=== PATIENT | female | born 1965 | race Caucasian/White ===

== ENCOUNTER 2021-07-16 00:13 | Observation (INO) ==
[2021-07-16] MEDS ORDERED: Naloxone 0.4 MG/ML INJ IVP PRN (02:48)
[2021-07-16] MEDS ORDERED: *HR* Dextrose 50 % in Water (Syg) 50 ML SYRINGE IVP PRN (03:20)
[2021-07-16] MEDS ORDERED: Dextrose Gel 15 GM/37.5 ML TUBE PO PRN ×2 (03:20)
[2021-07-16] MEDS ORDERED: D5% in Water 1,000 ML IVC PRN (03:20)
[2021-07-16 05:33] LABS: Basophils % 0.1 %; Hematocrit 39.4 % (35.3-44.9); Hemoglobin 11.7 g/dL (11.5-15.4); Immature Granulocytes % 0.5 % (0-4); Lymphocytes # 0.3 K/mcL (0.6-4.6); Lymphocytes % 4.1 %; Mean Corpuscular HGB Conc 29.7 g/dL (31.6-35.5); Mean Corpuscular Hemoglobin 24.2 pg (28.0-33.3); Mean Corpuscular Volume 81.4 fL (83.0-100.0); Mean Platelet Volume 9.6 fL (9.4-12.4); Monocytes % 0.5 %; Neutrophils # 7.4 K/mcL (1.6-8.9); Platelet Count 238 K/mcL (140-400); Red Blood Count 4.84 M/mcL (3.82-4.97); Segmented Neutrophils % 94.8 %; White Blood Count 7.9 K/mcL (4.3-11.1)
[2021-07-16 05:43] LABS: Prothrombin Time 11.6 Seconds (9.4-12.1)
[2021-07-16 06:04] LABS: Estimated Average Glucose 189 mg/dl; Hemoglobin A1C 8.2 %
[2021-07-16 06:30] LABS: Alanine Aminotransferase 25 Units/L (7-52); Albumin 3.7 g/dL (3.5-5.7); Albumin/Globulin Ratio 1.6 (1.1-2.2); Alkaline Phosphatase 102 Units/L (34-104); Aspartate Amino Transferase 10 Units/L (13-39); BUN/Creatinine Ratio 35 (6-26); Bilirubin,Total 0.3 mg/dL (0.3-1.0); Blood Urea Nitrogen 17 mg/dL (6-20); Calcium 8.9 mg/dL (8.6-10.3); Carbon Dioxide 27 mEq/L (23-29); Chloride 107 mEq/L (98-107); Chol/HDL Ratio 2.6 (0-4.9); Cholesterol 120 mg/dL (< 200); Globulin 2.3 g/dL (2.4-3.5); Glucose 219 mg/dL (70-105); HDL Cholesterol 46 mg/dL (40-59); LDL Cholesterol,Calculated 57 mg/dL (< 100); Osmolality,Calculated 302 (280-300); Potassium 4.3 mEq/L (3.5-5.1); Sodium 142 mEq/L (136-145); Thyroid Stimulating Hormone 0.494 mcIU/mL (0.340-5.600); Triglycerides 86 mg/dL (< 150); eGFR For African Americans > 60 (> 60); eGFR For Non-African Americans > 60 (> 60)
[2021-07-16] MEDS: lisinopriL 5 MG TABLET PO SCH (08:13)
[2021-07-16] MEDS: amLODIPine 5 MG TABLET PO SCH (08:13)
[2021-07-16] MEDS: ARIPiprazole 10 MG TABLET PO SCH (08:14)
[2021-07-16] MEDS ORDERED: *HR* LORazepam 2 MG/ML VIAL IVP ONE ×3 (09:22→23:50)
[2021-07-16] MEDS: Insulin LISPRO 300 UNITS/3 ML VIAL SUBQ SCH ×3 (09:43→17:54)
[2021-07-16] MEDS: levETIRAcetam 500 MG/5 ML UDC PO SCH (09:44)
[2021-07-16 11:17] LABS: Bilirubin,Urine Negative (Negative); Blood,Urine Negative (Negative); Clarity,Urine Clear (Clear); Color,Urine Colorless (Yellow); Glucose,Urine (UA) >=1000 mg/dL (Normal); Ketones,Urine 20 mg/dL (Negative); Leukocyte Esterase,Urine Negative (Negative); Nitrite,Urine Negative (Negative); Protein,Urine Negative (Neg-Trace); RBC,Urine 0-3 per hpf (0-3); Specific Gravity,Urine > 1.030 (1.010-1.025); Squamous Epithelial Cell,Urine Few per hpf (None-Few); Urobilinogen,Urine Normal (Normal); WBC,Urine 0-3 per hpf (0-3)
[2021-07-16 12:05] LABS: Influenza A PCR Negative (Negative); Influenza B PCR Negative (Negative); Resp. Syncytial Virus PCR Negative (Negative)
[2021-07-16 13:08] LABS: SARS-CoV-2 by PCR (In House) Negative (Negative)
[2021-07-16 18:48] LABS: Amphetamine Screen,Urine Negative ng/mL (Cutoff=1000); Barbiturate Screen,Urine Negative ng/mL (Cutoff=200); Benzodiazepines Screen,Urine Negative ng/mL (Cutoff=200); Cannabinoid Screen,Urine Negative ng/mL (Cutoff = 50); Cocaine Screen,Urine Negative ng/mL (Cutoff= 300); Opiate Screen,Urine Negative ng/mL (Cutoff=300); Phencyclidine Screen,Urine Negative ng/mL (Cutoff=25)
[2021-07-16] MEDS ORDERED: Insulin LISPRO 300 UNITS/3 ML VIAL SUBQ SCH (21:00)
[2021-07-17 06:58] VITALS: BP 156/79; PULSE 67; TEMP 97.9; O2SAT 97
[2021-07-17] MEDS: Insulin LISPRO 300 UNITS/3 ML VIAL SUBQ SCH ×2 (07:24→12:26)
[2021-07-17] MEDS ORDERED: Aspirin 81 MG TAB.CHEW PO SCH (09:00)
[2021-07-17] MEDS ORDERED: *HR* OxyCODONE/APAP 10/325 TABLET PO PRN (09:04)
[2021-07-17] MEDS: ARIPiprazole 10 MG TABLET PO SCH (09:14)
[2021-07-17] MEDS: amLODIPine 5 MG TABLET PO SCH (09:14)
[2021-07-17] MEDS: levETIRAcetam 500 MG/5 ML UDC PO SCH (09:15)
[2021-07-17] MEDS ORDERED: Apixaban 5 MG TABLET PO SCH (09:15)
[2021-07-17] MEDS: lisinopriL 5 MG TABLET PO SCH (09:15)
[2021-07-17] MEDS ORDERED: levETIRAcetam 250 MG TABLET PO SCH (21:00)
[2021-07-19] MEDS ORDERED: BUPRENORPHINE 15 MCG PO SCH (09:00)
== END 2021-07-17 16:56 | disposition home or self-care (01) ==
LOC: 3BNU
PROVIDERS: ADMIT Internal Medicine; ATTEND Internal Medicine

== ENCOUNTER 2021-08-08 05:51 | Inpatient (IN) ==
[2021-08-08] MEDS ORDERED: tiZANidine 4 MG TABLET PO PRN (15:21)
[2021-08-08] MEDS ORDERED: Dextrose Gel 15 GM/37.5 ML TUBE PO PRN ×2 (15:24)
[2021-08-08] MEDS ORDERED: D5% in Water 1,000 ML IVC PRN (15:24)
[2021-08-08] MEDS ORDERED: Ondansetron 4 MG/2 ML VIAL IVP PRN (15:24)
[2021-08-08] MEDS ORDERED: Naloxone 0.4 MG/ML INJ IVP PRN (15:24)
[2021-08-08] MEDS ORDERED: Acetaminophen 325 MG TABLET PO PRN (15:24)
[2021-08-08] MEDS ORDERED: *HR* Dextrose 50 % in Water (Syg) 50 ML SYRINGE IVP PRN (15:24)
[2021-08-08] MEDS ORDERED: Ipratropium/Albuterol Neb 3 ML IH PRN (15:25)
[2021-08-08] MEDS ORDERED: Azithromycin 500 MG in 0.9 % Sodium Chloride 250 ML IVPB SCH (16:00)
[2021-08-08] MEDS: MethylPREDNISolone 40 MG/ML VIAL IVP SCH (17:04)
[2021-08-08] MEDS: Insulin LISPRO 300 UNITS/3 ML VIAL SUBQ SCH (17:05)
[2021-08-08] MEDS: *HR* OxyCODONE/APAP 10/325 TABLET PO PRN ×2 (17:22→21:40)
[2021-08-08] MEDS: Nicotine 14 MG PATCH.TD24 TD SCH (17:23)
[2021-08-08] MEDS ORDERED: levETIRAcetam 250 MG TABLET PO SCH (18:00)
[2021-08-08] MEDS: Ipratropium/Albuterol Neb 3 ML IH SCH ×2 (18:18→19:54)
[2021-08-08] MEDS: Melatonin 3 MG TABLET PO SCH (21:39)
[2021-08-08] MEDS: hydrOXYzine pamoate 25 MG CAPSULE PO PRN (21:40)
[2021-08-08] MEDS: Apixaban 5 MG TABLET PO SCH (21:40)
[2021-08-08] MEDS: Pregabalin 75 MG CAPSULE PO SCH (21:40)
[2021-08-09] MEDS ORDERED: *HR* LORazepam 2 MG/ML VIAL IVP ONE ×3 (01:50→02:45)
[2021-08-09] MEDS ORDERED: *HR* LORazepam 2 MG/ML VIAL ONE ×2 (01:51→02:41)
[2021-08-09] MEDS ORDERED: Ringers Solution, Lactated 1,000 ML IVC ONE (01:53)
[2021-08-09 02:00] LABS: ABG Base Excess -1 mEq/L (-2 to 3); ABG HCO3 26 mEq/L (21-27); ABG Oxygen Saturation 92 % (95-98); ABG PCO2 51 mmHg (35-45); ABG PH 7.32 pH Units (7.32-7.45); ABG PO2 70 mmHg (85-104); ABG TCO2 28 mEq/L (20-26)
[2021-08-09 02:19] LABS: Basophils % 0.1 %; Hematocrit 37.7 % (35.3-44.9); Hemoglobin 11.1 g/dL (11.5-15.4); Immature Granulocytes % 0.8 % (0-4); Lymphocytes # 0.6 K/mcL (0.6-4.6); Mean Corpuscular HGB Conc 29.4 g/dL (31.6-35.5); Mean Corpuscular Hemoglobin 24.5 pg (28.0-33.3); Mean Corpuscular Volume 83.2 fL (83.0-100.0); Mean Platelet Volume 10.3 fL (9.4-12.4); Monocytes # 0.6 K/mcL (0.0-1.3); Neutrophils # 6.4 K/mcL (1.6-8.9); Platelet Count 278 K/mcL (140-400); Red Blood Count 4.53 M/mcL (3.82-4.97); Red Cell Distribution Width 18.6 % (11.5-14.5); Segmented Neutrophils % 83.1 %; White Blood Count 7.7 K/mcL (4.3-11.1)
[2021-08-09 02:41] LABS: Alanine Aminotransferase 11 Units/L (7-52); Albumin 3.9 g/dL (3.5-5.7); Albumin/Globulin Ratio 1.7 (1.1-2.2); Alkaline Phosphatase 97 Units/L (34-104); Aspartate Amino Transferase 8 Units/L (13-39); BUN/Creatinine Ratio 30 (6-26); Bilirubin,Total 0.2 mg/dL (0.3-1.0); Blood Urea Nitrogen 21 mg/dL (6-20); Calcium 9.1 mg/dL (8.6-10.3); Carbon Dioxide 26 mEq/L (23-29); Chloride 105 mEq/L (98-107); Chol/HDL Ratio 2.1 (0-4.9); Cholesterol 131 mg/dL (< 200); Globulin 2.3 g/dL (2.4-3.5); Glucose 269 mg/dL (70-105); HDL Cholesterol 61 mg/dL (40-59); LDL Cholesterol,Calculated 55 mg/dL (< 100); Magnesium 1.9 mg/dL (1.6-2.6); Osmolality,Calculated 298 (280-300); Sodium 138 mEq/L (136-145); Total Protein 6.2 g/dL (6.4-8.9); Triglycerides 77 mg/dL (< 150); eGFR For African Americans > 60 (> 60); eGFR For Non-African Americans > 60 (> 60)
[2021-08-09 02:57] LABS: Troponin I < 0.03 ng/mL (< 0.04)
[2021-08-09] MEDS ORDERED: Phenytoin 1,000 MG in 0.9 % Sodium Chloride 50 ML IVP ONE (03:30)
[2021-08-09] MEDS: Ipratropium/Albuterol Neb 3 ML IH SCH ×4 (03:40→20:51)
[2021-08-09] MEDS: MethylPREDNISolone 40 MG/ML VIAL IVP SCH ×2 (05:32→16:15)
[2021-08-09] MEDS ORDERED: *HR* LORazepam 2 MG/ML VIAL IVP PRN (08:19)
[2021-08-09] MEDS ORDERED: levETIRAcetam 250 MG TABLET PO SCH (09:00)
[2021-08-09] MEDS ORDERED: amLODIPine 5 MG TABLET PO SCH (09:00)
[2021-08-09] MEDS ORDERED: ARIPiprazole 10 MG TABLET PO SCH (09:00)
[2021-08-09] MEDS ORDERED: lisinopriL 5 MG TABLET PO SCH (09:00)
[2021-08-09 09:04] LABS: Bilirubin,Urine Negative (Negative); Blood,Urine Negative (Negative); Clarity,Urine Clear (Clear); Color,Urine Colorless (Yellow); Glucose,Urine (UA) >=1000 mg/dL (Normal); Ketones,Urine Negative (Negative); Leukocyte Esterase,Urine Negative (Negative); Nitrite,Urine Negative (Negative); Protein,Urine Negative (Neg-Trace); RBC,Urine 0-3 per hpf (0-3); Specific Gravity,Urine > 1.030 (1.010-1.025); Squamous Epithelial Cell,Urine Few per hpf (None-Few); Urobilinogen,Urine Normal (Normal); WBC,Urine 0-3 per hpf (0-3)
[2021-08-09] MEDS: Nicotine 14 MG PATCH.TD24 TD SCH (09:04)
[2021-08-09] MEDS: Pregabalin 75 MG CAPSULE PO SCH ×2 (09:04→21:37)
[2021-08-09] MEDS: Apixaban 5 MG TABLET PO SCH ×2 (09:04→21:37)
[2021-08-09] MEDS: Insulin LISPRO 300 UNITS/3 ML VIAL SUBQ SCH ×3 (09:05→17:34)
[2021-08-09] MEDS ORDERED: DAPTOmycin 350 MG in 0.9 % Sodium Chloride 100 ML IVPB SCH (11:00)
[2021-08-09] MEDS: Cefepime HCl 1,000 MG in 0.9 % Sodium Chloride Mini Bag 100 ML IVPB SCH ×2 (11:11→16:16)
[2021-08-09] MEDS: Phenytoin 100 MG in Equashield Syringe 1 EACH IVP SCH ×2 (11:11→21:38)
[2021-08-09] MEDS: *HR* OxyCODONE/APAP 10/325 TABLET PO PRN (12:34)
[2021-08-09] MEDS: hydrOXYzine pamoate 25 MG CAPSULE PO PRN (12:34)
[2021-08-09] MEDS ORDERED: Haloperidol Lactate 5 MG/ML VIAL IVP ONE (13:38)
[2021-08-09] MEDS ORDERED: levETIRAcetam 1,000 MG in 0.9 % Sodium Chloride 100 ML IVPB SCH (16:00)
[2021-08-09 17:44] LABS: Adenovirus Not Detected (Not Detect); Bordetella Pertussis Not Detected (Not Detect); Chlamydophila pneumoniae Not Detected (Not Detect); Coronavirus 229E Not Detected (Not Detect); Coronavirus HKU1 Not Detected (Not Detect); Coronavirus NL63 Not Detected (Not Detect); Coronavirus OC43 Not Detected (Not Detect); Human Metapneumovirus Not Detected (Not Detect); Human Rhinovirus/Enterovirus Not Detected (Not Detect); Influenza A Subtype 2009 H1 Not Detected (Not Detect); Influenza B Not Detected (Not Detect); Mycoplasma pneumoniae Not Detected (Not Detect); Parainfluenza Virus 1 Not Detected (Not Detect); Parainfluenza Virus 2 Not Detected (Not Detect); Parainfluenza Virus 3 Not Detected (Not Detect); Parainfluenza Virus 4 Not Detected (Not Detect); Respiratory Syncytial Virus Not Detected (Not Detect); SARS-CoV-2 Not Detected (Not Detect)
[2021-08-09 19:30] VITALS: BP 127/59; PULSE 72; TEMP 98.5
[2021-08-09] MEDS: Melatonin 3 MG TABLET PO SCH (21:37)
[2021-08-09 21:50] VITALS: O2SAT 98
== END 2021-08-09 22:30 | disposition home or self-care (01) | DRG 189 ==
LOC: 3NENU → SUATTDRO 14:14
PROVIDERS: ADMIT Internal Medicine; ATTEND Internal Medicine

== ENCOUNTER 2021-11-01 15:42 | Observation (INO) ==
[2021-11-01] MEDS ORDERED: Ondansetron 4 MG/2 ML VIAL IVP PRN (17:56)
[2021-11-01] MEDS ORDERED: Naloxone 0.4 MG/ML INJ IVP PRN (17:56)
[2021-11-01] MEDS ORDERED: 0.9 % Sodium Chloride 1,000 ML IVC SCH (18:00)
[2021-11-01] MEDS ORDERED: Albuterol 2.5 MG/3 ML NEBULIZER IH PRN (18:03)
[2021-11-01] MEDS ORDERED: Nitroglycerin 0.4 MG TAB.SUBL SL PRN (18:21)
[2021-11-01] MEDS ORDERED: tiZANidine 4 MG TABLET PO PRN (18:34)
[2021-11-01] MEDS ORDERED: *HR* Dextrose 50 % in Water (Syg) 50 ML SYRINGE IVP PRN (18:34)
[2021-11-01] MEDS ORDERED: D5% in Water 1,000 ML IVC PRN (18:34)
[2021-11-01] MEDS ORDERED: Dextrose 4 GM Chewable Tablets PO PRN ×2 (18:34)
[2021-11-01] MEDS: Nicotine 21 MG PATCH.TD24 TD SCH (19:45)
[2021-11-01] MEDS: Pregabalin 75 MG CAPSULE PO SCH (19:55)
[2021-11-01] MEDS: Metoprolol XL (24 HR) Succ 25 MG TAB.ER.24H PO SCH (19:55)
[2021-11-01] MEDS: Apixaban 5 MG TABLET PO SCH (19:55)
[2021-11-01] MEDS: *HR* HYDROcodone/Acet 5/325 mg TABLET PO PRN (19:56)
[2021-11-01 22:57] LABS: Bilirubin,Urine Negative (Negative); Blood,Urine Negative (Negative); Clarity,Urine Clear (Clear); Color,Urine Light-Orange (Yellow); Glucose,Urine (UA) >=1000 mg/dL (Normal); Ketones,Urine Negative (Negative); Leukocyte Esterase,Urine Negative (Negative); Mucus,Urine Few per lpf (None-Few); Nitrite,Urine Negative (Negative); Protein,Urine Trace mg/dL (Neg-Trace); Specific Gravity,Urine > 1.030 (1.010-1.025); Squamous Epithelial Cell,Urine Few per hpf (None-Few); Urobilinogen,Urine Normal (Normal); WBC,Urine 0-3 per hpf (0-3)
[2021-11-02 01:00] LABS: Alanine Aminotransferase 10 Units/L (7-52); Albumin 3.5 g/dL (3.5-5.7); Albumin/Globulin Ratio 1.5 (1.1-2.2); Alkaline Phosphatase 79 Units/L (34-104); Aspartate Amino Transferase 10 Units/L (13-39); BUN/Creatinine Ratio 25 (6-26); Bilirubin,Total 0.4 mg/dL (0.3-1.0); Blood Urea Nitrogen 14 mg/dL (6-20); Calcium 8.9 mg/dL (8.6-10.3); Carbon Dioxide 26 mEq/L (23-29); Chloride 106 mEq/L (98-107); Globulin 2.4 g/dL (2.4-3.5); Glucose 187 mg/dL (70-105); Magnesium 1.9 mg/dL (1.6-2.6); Osmolality,Calculated 293 (280-300); Phosphorous 4.7 mg/dL (2.7-4.5); Potassium 3.5 mEq/L (3.5-5.1); Sodium 139 mEq/L (136-145); Total Protein 5.9 g/dL (6.4-8.9); Troponin I < 0.03 ng/mL (< 0.04); eGFR For African Americans > 60 (> 60); eGFR For Non-African Americans > 60 (> 60)
[2021-11-02 01:07] LABS: INR 1.4; Prothrombin Time 16.1 Seconds (9.4-12.1)
[2021-11-02 01:10] LABS: Activated Partial Thrombo Time 36.5 Seconds (26.0-36.0); Basophils % 0.7 %; Eosinophils # 0.3 K/mcL (0.0-0.6); Eosinophils % 4.5 %; Hematocrit 36.2 % (35.3-44.9); Hemoglobin 11.3 g/dL (11.5-15.4); Immature Granulocytes % 0.3 % (0-4); Lymphocytes # 1.2 K/mcL (0.6-4.6); Lymphocytes % 20.4 %; Mean Corpuscular HGB Conc 31.2 g/dL (31.6-35.5); Mean Corpuscular Hemoglobin 25.9 pg (28.0-33.3); Monocytes # 0.6 K/mcL (0.0-1.3); Monocytes % 10.8 %; Neutrophils # 3.7 K/mcL (1.6-8.9); Platelet Count 279 K/mcL (140-400); Red Blood Count 4.36 M/mcL (3.82-4.97); Red Cell Distribution Width 18.1 % (11.5-14.5); Segmented Neutrophils % 63.3 %; White Blood Count 5.8 K/mcL (4.3-11.1)
[2021-11-02] MEDS: *HR* HYDROcodone/Acet 5/325 mg TABLET PO PRN (03:24)
[2021-11-02] MEDS ORDERED: *HR* HYDROcodone/Acet 5/325 mg TABLET PO PRN (06:44)
[2021-11-02] MEDS ORDERED: Regadenoson 0.4 MG/5 ML SYRINGE IVP ONE (06:46)
[2021-11-02 07:12] VITALS: BP 138/72; PULSE 78; TEMP 97.5; O2SAT 92
[2021-11-02] MEDS: Insulin LISPRO 300 UNITS/3 ML VIAL SUBQ SCH ×2 (07:22→11:14)
[2021-11-02] MEDS ORDERED: ARIPiprazole 10 MG TABLET PO SCH (09:00)
[2021-11-02] MEDS ORDERED: amLODIPine 5 MG TABLET PO SCH (09:00)
[2021-11-02] MEDS ORDERED: levETIRAcetam 250 MG TABLET PO SCH ×2 (09:00→18:00)
[2021-11-02] MEDS: Apixaban 5 MG TABLET PO SCH (09:57)
[2021-11-02] MEDS: Pregabalin 75 MG CAPSULE PO SCH (09:57)
[2021-11-02] MEDS: Metoprolol XL (24 HR) Succ 25 MG TAB.ER.24H PO SCH (09:58)
[2021-11-02] MEDS: Nicotine 21 MG PATCH.TD24 TD SCH (09:58)
== END 2021-11-02 15:17 | disposition home or self-care (01) ==
LOC: 3BNU
PROVIDERS: ADMIT Internal Medicine; ATTEND Internal Medicine

== ENCOUNTER 2021-11-17 12:23 | Inpatient (IN) ==
[2021-11-17] MEDS ORDERED: Ondansetron 4 MG/2 ML VIAL IVP PRN (13:12)
[2021-11-17] MEDS ORDERED: Naloxone 0.4 MG/ML INJ IVP PRN (13:12)
[2021-11-17] MEDS ORDERED: *HR* Dextrose 50 % in Water (Syg) 50 ML SYRINGE IVP PRN (13:19)
[2021-11-17] MEDS ORDERED: Dextrose 4 GM Chewable Tablets PO PRN ×2 (13:19)
[2021-11-17] MEDS ORDERED: Albuterol 2.5 MG/3 ML NEBULIZER IH PRN (13:19)
[2021-11-17] MEDS ORDERED: D5% in Water 1,000 ML IVC PRN (13:19)
[2021-11-17] MEDS ORDERED: Isovue-370 500 ML BOTTLE IVP ONE (13:35)
[2021-11-17] MEDS ORDERED: Perflutren Lipid Microsphere 1.3 ML in 0.9 % Sodium Chloride 8.7 ML IVP PRN (13:35)
[2021-11-17 14:33] LABS: Basophils % 0.4 %; Eosinophils # 0.2 K/mcL (0.0-0.6); Hematocrit 35.7 % (35.3-44.9); Hemoglobin 10.7 g/dL (11.5-15.4); Immature Granulocytes % 0.4 % (0-4); Lymphocytes # 0.8 K/mcL (0.6-4.6); Lymphocytes % 11.3 %; Mean Corpuscular Hemoglobin 25.3 pg (28.0-33.3); Mean Corpuscular Volume 84.4 fL (83.0-100.0); Monocytes # 0.6 K/mcL (0.0-1.3); Monocytes % 8.4 %; Neutrophils # 5.6 K/mcL (1.6-8.9); Platelet Count 263 K/mcL (140-400); Red Blood Count 4.23 M/mcL (3.82-4.97); Red Cell Distribution Width 18.1 % (11.5-14.5); Segmented Neutrophils % 76.5 %; White Blood Count 7.4 K/mcL (4.3-11.1)
[2021-11-17 14:44] LABS: INR 1.2; Prothrombin Time 13.2 Seconds (9.4-12.1)
[2021-11-17 14:46] LABS: Activated Partial Thrombo Time 37.2 Seconds (26.0-36.0)
[2021-11-17 15:19] LABS: BUN/Creatinine Ratio 21 (6-26); Blood Urea Nitrogen 10 mg/dL (6-20); Calcium 8.9 mg/dL (8.6-10.3); Carbon Dioxide 30 mEq/L (23-29); Chloride 104 mEq/L (98-107); Glucose 134 mg/dL (70-105); Osmolality,Calculated 291 (280-300); Sodium 140 mEq/L (136-145); eGFR For African Americans > 60 (> 60); eGFR For Non-African Americans > 60 (> 60)
[2021-11-17 15:33] LABS: Magnesium 1.8 mg/dL (1.6-2.6)
[2021-11-17] MEDS: *HR* OxyCODONE Immed Rel 5 MG TABLET PO PRN (16:39)
[2021-11-17] MEDS: Insulin LISPRO 300 UNITS/3 ML VIAL SUBQ SCH (16:57)
[2021-11-17] MEDS: levETIRAcetam 250 MG TABLET PO SCH (17:01)
[2021-11-17] MEDS: *HR* HYDROcodone/Acet 5/325 mg TABLET PO PRN (19:53)
[2021-11-17] MEDS: Apixaban 5 MG TABLET PO SCH (19:53)
[2021-11-17] MEDS: Pregabalin 75 MG CAPSULE PO SCH (19:53)
[2021-11-18] MEDS: *HR* OxyCODONE Immed Rel 5 MG TABLET PO PRN (00:01)
[2021-11-18] MEDS ORDERED: *HR* LORazepam 2 MG/ML VIAL IVP ONE (07:32)
[2021-11-18] MEDS ORDERED: levETIRAcetam 1,000 MG in 0.9 % Sodium Chloride 100 ML IVPB ONE (07:33)
[2021-11-18 07:47] LABS: ABG Base Excess 5 mEq/L (-2 to 3); ABG HCO3 33 mEq/L (21-27); ABG Oxygen Saturation 92 % (95-98); ABG PCO2 63 mmHg (35-45); ABG PH 7.33 pH Units (7.32-7.45); ABG PO2 71 mmHg (85-104); ABG TCO2 35 mEq/L (20-26)
[2021-11-18] MEDS: ARIPiprazole 10 MG TABLET PO SCH (08:43)
[2021-11-18] MEDS: Apixaban 5 MG TABLET PO SCH ×2 (08:43→22:26)
[2021-11-18] MEDS: levETIRAcetam 250 MG TABLET PO SCH ×2 (08:43→17:32)
[2021-11-18] MEDS: Insulin LISPRO 300 UNITS/3 ML VIAL SUBQ SCH ×3 (08:43→17:22)
[2021-11-18] MEDS: Pregabalin 75 MG CAPSULE PO SCH ×2 (08:43→22:26)
[2021-11-18] MEDS: amLODIPine 5 MG TABLET PO SCH (08:43)
[2021-11-18] MEDS: DAPTOmycin 600 MG in 0.9 % Sodium Chloride 100 ML IVPB SCH (09:23)
[2021-11-18 13:25] LABS: Alanine Aminotransferase 15 Units/L (7-52); Albumin 3.6 g/dL (3.5-5.7); Albumin/Globulin Ratio 1.6 (1.1-2.2); Alkaline Phosphatase 85 Units/L (34-104); Aspartate Amino Transferase 18 Units/L (13-39); BUN/Creatinine Ratio 29 (6-26); Bilirubin,Total 0.4 mg/dL (0.3-1.0); Blood Urea Nitrogen 14 mg/dL (6-20); Calcium 8.7 mg/dL (8.6-10.3); Carbon Dioxide 31 mEq/L (23-29); Chloride 107 mEq/L (98-107); Globulin 2.3 g/dL (2.4-3.5); Glucose 101 mg/dL (70-105); Osmolality,Calculated 295 (280-300); Potassium 3.8 mEq/L (3.5-5.1); Sodium 142 mEq/L (136-145); Total Protein 5.9 g/dL (6.4-8.9); eGFR For African Americans > 60 (> 60); eGFR For Non-African Americans > 60 (> 60)
[2021-11-18] MEDS ORDERED: tiZANidine 4 MG TABLET PO PRN (13:39)
[2021-11-18 14:01] LABS: Creatine Kinase 31 Units/L (30-223)
[2021-11-18] MEDS: *HR* HYDROcodone/Acet 5/325 mg TABLET PO PRN (17:38)
[2021-11-18] MEDS: Haloperidol Lactate 5 MG/ML VIAL IVP PRN (18:03)
[2021-11-18] MEDS: Melatonin 3 MG TABLET PO SCH (22:27)
[2021-11-19] MEDS: *HR* HYDROcodone/Acet 5/325 mg TABLET PO PRN (01:07)
[2021-11-19] MEDS: *HR* OxyCODONE Immed Rel 5 MG TABLET PO PRN ×3 (03:35→23:36)
[2021-11-19] MEDS: Haloperidol Lactate 5 MG/ML VIAL IVP PRN ×2 (03:37→09:53)
[2021-11-19] MEDS: Insulin LISPRO 300 UNITS/3 ML VIAL SUBQ SCH ×3 (08:16→16:55)
[2021-11-19] MEDS: ARIPiprazole 10 MG TABLET PO SCH (08:17)
[2021-11-19] MEDS: Apixaban 5 MG TABLET PO SCH ×2 (08:18→19:49)
[2021-11-19] MEDS: Pregabalin 75 MG CAPSULE PO SCH ×2 (08:18→19:48)
[2021-11-19] MEDS: amLODIPine 5 MG TABLET PO SCH (08:19)
[2021-11-19] MEDS: levETIRAcetam 250 MG TABLET PO SCH ×2 (08:20→16:53)
[2021-11-19 08:58] LABS: Basophils % 0.8 %; Eosinophils # 0.2 K/mcL (0.0-0.6); Eosinophils % 3.8 %; Hematocrit 37.1 % (35.3-44.9); Hemoglobin 10.8 g/dL (11.5-15.4); Immature Granulocytes % 0.6 % (0-4); Lymphocytes # 0.8 K/mcL (0.6-4.6); Lymphocytes % 16.7 %; Mean Corpuscular HGB Conc 29.1 g/dL (31.6-35.5); Mean Corpuscular Hemoglobin 24.9 pg (28.0-33.3); Mean Corpuscular Volume 85.5 fL (83.0-100.0); Mean Platelet Volume 9.9 fL (9.4-12.4); Monocytes # 0.7 K/mcL (0.0-1.3); Monocytes % 14.6 %; Platelet Count 222 K/mcL (140-400); Red Blood Count 4.34 M/mcL (3.82-4.97); Red Cell Distribution Width 18.1 % (11.5-14.5); Segmented Neutrophils % 63.5 %; White Blood Count 4.7 K/mcL (4.3-11.1)
[2021-11-19 09:13] LABS: BUN/Creatinine Ratio 33 (6-26); Blood Urea Nitrogen 17 mg/dL (6-20); Calcium 8.8 mg/dL (8.6-10.3); Carbon Dioxide 29 mEq/L (23-29); Chloride 103 mEq/L (98-107); Glucose 131 mg/dL (70-105); Magnesium 2.1 mg/dL (1.6-2.6); Osmolality,Calculated 287 (280-300); Phosphorous 3.1 mg/dL (2.7-4.5); Potassium 3.7 mEq/L (3.5-5.1); Sodium 137 mEq/L (136-145); eGFR For African Americans > 60 (> 60); eGFR For Non-African Americans > 60 (> 60)
[2021-11-19] MEDS: DAPTOmycin 600 MG in 0.9 % Sodium Chloride 100 ML IVPB SCH (09:43)
[2021-11-19] MEDS ORDERED: *HR* LORazepam 2 MG/ML VIAL IVP ONE (10:27)
[2021-11-19] MEDS: Melatonin 3 MG TABLET PO SCH (19:49)
[2021-11-20] MEDS: Insulin LISPRO 300 UNITS/3 ML VIAL SUBQ SCH ×3 (09:05→17:32)
[2021-11-20] MEDS: ARIPiprazole 10 MG TABLET PO SCH (09:09)
[2021-11-20] MEDS: Apixaban 5 MG TABLET PO SCH ×2 (09:09→20:15)
[2021-11-20] MEDS: amLODIPine 5 MG TABLET PO SCH (09:10)
[2021-11-20] MEDS: levETIRAcetam 250 MG TABLET PO SCH (09:10)
[2021-11-20] MEDS: Pregabalin 75 MG CAPSULE PO SCH ×2 (09:10→20:15)
[2021-11-20] MEDS: DAPTOmycin 600 MG in 0.9 % Sodium Chloride 100 ML IVPB SCH (09:13)
[2021-11-20] MEDS ORDERED: *HR* LORazepam 2 MG/ML VIAL IVP ONE (11:28)
[2021-11-20] MEDS: *HR* OxyCODONE Immed Rel 5 MG TABLET PO PRN (13:52)
[2021-11-20] MEDS: *HR* LORazepam 2 MG/ML VIAL IVP PRN (14:14)
[2021-11-20] MEDS ORDERED: Phenytoin 1,000 MG in Equashield Syringe 1 EACH IVP ONE (16:00)
[2021-11-20 17:46] LABS: Immature Granulocytes % 0.5 % (0-4); Red Cell Distribution Width 17.8 % (11.5-14.5)
[2021-11-20 17:48] LABS: Basophils % 0.5 %; Eosinophils # 0.2 K/mcL (0.0-0.6); Eosinophils % 3.3 %; Hematocrit 40.3 % (35.3-44.9); Hemoglobin 12.2 g/dL (11.5-15.4); Immature Platelets 7.5 % (1.1-6.1); Lymphocytes # 0.8 K/mcL (0.6-4.6); Lymphocytes % 13.5 %; Mean Corpuscular HGB Conc 30.3 g/dL (31.6-35.5); Mean Corpuscular Hemoglobin 25.5 pg (28.0-33.3); Mean Corpuscular Volume 84.1 fL (83.0-100.0); Mean Platelet Volume 10.8 fL (9.4-12.4); Monocytes # 0.5 K/mcL (0.0-1.3); Monocytes % 9.5 %; Red Blood Count 4.79 M/mcL (3.82-4.97); Segmented Neutrophils % 72.7 %; White Blood Count 5.7 K/mcL (4.3-11.1)
[2021-11-20 17:49] LABS: BUN/Creatinine Ratio 33 (6-26); Blood Urea Nitrogen 16 mg/dL (6-20); Calcium 9.3 mg/dL (8.6-10.3); Carbon Dioxide 26 mEq/L (23-29); Chloride 103 mEq/L (98-107); Creatine Kinase 41 Units/L (30-223); Glucose 167 mg/dL (70-105); Osmolality,Calculated 287 (280-300); Sodium 136 mEq/L (136-145); eGFR For African Americans > 60 (> 60); eGFR For Non-African Americans > 60 (> 60)
[2021-11-20 18:19] LABS: Neutrophils # 4.1 K/mcL (1.6-8.9)
[2021-11-20 18:20] LABS: Large Platelets Present (Not Present); Platelet Clumps Few (Not Present); Platelet Count 212 K/mcL (140-400); Platelet Estimate Normal (Normal)
[2021-11-20] MEDS: levETIRAcetam 1,000 MG in 0.9 % Sodium Chloride 100 ML IVPB SCH (18:30)
[2021-11-20] MEDS: Melatonin 3 MG TABLET PO SCH (20:15)
[2021-11-20] MEDS: 0.9 % Sodium Chloride 1,000 ML IVC SCH (21:47)
[2021-11-21] MEDS: Phenytoin 100 MG in Equashield Syringe 1 EACH IVP SCH ×3 (00:10→16:45)
[2021-11-21] MEDS: *HR* HYDROcodone/Acet 5/325 mg TABLET PO PRN ×2 (05:32→21:14)
[2021-11-21 06:09] LABS: Basophils % 0.7 %; Eosinophils # 0.2 K/mcL (0.0-0.6); Eosinophils % 3.4 %; Hematocrit 38.4 % (35.3-44.9); Hemoglobin 11.5 g/dL (11.5-15.4); Immature Granulocytes % 0.5 % (0-4); Lymphocytes # 0.9 K/mcL (0.6-4.6); Lymphocytes % 15.6 %; Mean Corpuscular HGB Conc 29.9 g/dL (31.6-35.5); Mean Corpuscular Hemoglobin 25.1 pg (28.0-33.3); Mean Corpuscular Volume 83.8 fL (83.0-100.0); Mean Platelet Volume 10.5 fL (9.4-12.4); Monocytes # 0.6 K/mcL (0.0-1.3); Monocytes % 11.2 %; Neutrophils # 3.9 K/mcL (1.6-8.9); Platelet Count 220 K/mcL (140-400); Red Blood Count 4.58 M/mcL (3.82-4.97); Red Cell Distribution Width 17.5 % (11.5-14.5); Segmented Neutrophils % 68.6 %; White Blood Count 5.7 K/mcL (4.3-11.1)
[2021-11-21] MEDS: Haloperidol Lactate 5 MG/ML VIAL IVP PRN ×3 (06:21→18:19)
[2021-11-21 06:46] LABS: BUN/Creatinine Ratio 38 (6-26); Blood Urea Nitrogen 16 mg/dL (6-20); Calcium 9.1 mg/dL (8.6-10.3); Carbon Dioxide 27 mEq/L (23-29); Chloride 103 mEq/L (98-107); Glucose 110 mg/dL (70-105); Osmolality,Calculated 284 (280-300); Potassium 3.9 mEq/L (3.5-5.1); Sodium 136 mEq/L (136-145); eGFR For African Americans > 60 (> 60); eGFR For Non-African Americans > 60 (> 60)
[2021-11-21] MEDS: 0.9 % Sodium Chloride 1,000 ML IVC SCH ×2 (07:39→11:54)
[2021-11-21] MEDS: ARIPiprazole 10 MG TABLET PO SCH (08:37)
[2021-11-21] MEDS: Pregabalin 75 MG CAPSULE PO SCH ×2 (08:37→21:15)
[2021-11-21] MEDS: *HR* OxyCODONE Immed Rel 5 MG TABLET PO PRN (08:37)
[2021-11-21] MEDS: amLODIPine 5 MG TABLET PO SCH (08:37)
[2021-11-21] MEDS: Apixaban 5 MG TABLET PO SCH ×2 (08:38→21:15)
[2021-11-21] MEDS: Insulin LISPRO 300 UNITS/3 ML VIAL SUBQ SCH ×3 (08:39→16:51)
[2021-11-21] MEDS: *HR* LORazepam 2 MG/ML VIAL IVP PRN (10:58)
[2021-11-21] MEDS: levETIRAcetam 750 MG in 0.9 % Sodium Chloride 100 ML IVPB SCH (11:30)
[2021-11-21] MEDS: levETIRAcetam 1,000 MG in 0.9 % Sodium Chloride 100 ML IVPB SCH (17:48)
[2021-11-21] MEDS ORDERED: *HR* LORazepam 2 MG/ML VIAL IVP ONE (22:01)
[2021-11-21] MEDS: Melatonin 3 MG TABLET PO SCH (22:58)
[2021-11-22] MEDS: Phenytoin 100 MG in Equashield Syringe 1 EACH IVP SCH ×4 (00:33→23:37)
[2021-11-22 03:25] LABS: Hematocrit 36.7 % (35.3-44.9); Hemoglobin 11.2 g/dL (11.5-15.4); Mean Corpuscular HGB Conc 30.5 g/dL (31.6-35.5); Mean Corpuscular Hemoglobin 25.3 pg (28.0-33.3); Mean Corpuscular Volume 82.8 fL (83.0-100.0); Mean Platelet Volume 10.8 fL (9.4-12.4); Platelet Count 213 K/mcL (140-400); Red Blood Count 4.43 M/mcL (3.82-4.97); Red Cell Distribution Width 17.4 % (11.5-14.5); White Blood Count 4.4 K/mcL (4.3-11.1)
[2021-11-22 03:35] LABS: BUN/Creatinine Ratio 39 (6-26); Blood Urea Nitrogen 16 mg/dL (6-20); Calcium 8.8 mg/dL (8.6-10.3); Carbon Dioxide 27 mEq/L (23-29); Chloride 105 mEq/L (98-107); Glucose 118 mg/dL (70-105); Osmolality,Calculated 288 (280-300); Potassium 3.6 mEq/L (3.5-5.1); Sodium 138 mEq/L (136-145); eGFR For African Americans > 60 (> 60); eGFR For Non-African Americans > 60 (> 60)
[2021-11-22] MEDS: *HR* OxyCODONE Immed Rel 5 MG TABLET PO PRN ×3 (04:19→18:09)
[2021-11-22] MEDS: Haloperidol Lactate 5 MG/ML VIAL IVP PRN (06:10)
[2021-11-22] MEDS: ARIPiprazole 10 MG TABLET PO SCH (07:50)
[2021-11-22] MEDS: Apixaban 5 MG TABLET PO SCH ×2 (07:50→20:54)
[2021-11-22] MEDS: Pregabalin 75 MG CAPSULE PO SCH ×2 (07:50→20:54)
[2021-11-22] MEDS: amLODIPine 5 MG TABLET PO SCH (07:51)
[2021-11-22] MEDS: levETIRAcetam 750 MG in 0.9 % Sodium Chloride 100 ML IVPB SCH (07:55)
[2021-11-22] MEDS: Insulin LISPRO 300 UNITS/3 ML VIAL SUBQ SCH ×3 (08:06→17:56)
[2021-11-22] MEDS ORDERED: Dexmedetomidine HCl 400 MCG/100 ML MLS IVC SCH (12:00)
[2021-11-22] MEDS ORDERED: QUEtiapine Fumarate 25 MG TABLET PO PRN (12:34)
[2021-11-22] MEDS: levETIRAcetam 1,000 MG in 0.9 % Sodium Chloride 100 ML IVPB SCH (17:53)
[2021-11-22 18:40] VITALS: O2SAT 96
[2021-11-22] MEDS: *HR* HYDROcodone/Acet 5/325 mg TABLET PO PRN (20:53)
[2021-11-22] MEDS: Melatonin 3 MG TABLET PO SCH (20:54)
[2021-11-22] MEDS: Thiamine (B-1) 100 MG in 0.9 % Sodium Chloride 50 ML IVPB SCH (20:55)
[2021-11-23] MEDS: *HR* OxyCODONE Immed Rel 5 MG TABLET PO PRN (01:20)
[2021-11-23 03:05] LABS: Alanine Aminotransferase 16 Units/L (7-52); Albumin 3.5 g/dL (3.5-5.7); Albumin/Globulin Ratio 1.8 (1.1-2.2); Alkaline Phosphatase 96 Units/L (34-104); Aspartate Amino Transferase 13 Units/L (13-39); BUN/Creatinine Ratio 36 (6-26); Bilirubin,Indirect 0.2 mg/dL (0.0-1.0); Bilirubin,Total 0.2 mg/dL (0.3-1.0); Blood Urea Nitrogen 20 mg/dL (6-20); Calcium 8.9 mg/dL (8.6-10.3); Carbon Dioxide 26 mEq/L (23-29); Chloride 107 mEq/L (98-107); Glucose 200 mg/dL (70-105); Osmolality,Calculated 298 (280-300); Potassium 3.8 mEq/L (3.5-5.1); Sodium 140 mEq/L (136-145); Total Protein 5.5 g/dL (6.4-8.9); eGFR For African Americans > 60 (> 60); eGFR For Non-African Americans > 60 (> 60)
[2021-11-23 04:06] VITALS: BP 143/76; TEMP 98
[2021-11-23] MEDS: 0.9 % Sodium Chloride 1,000 ML IVC SCH (07:36)
[2021-11-23] MEDS: Insulin LISPRO 300 UNITS/3 ML VIAL SUBQ SCH (08:01)
[2021-11-23] MEDS: amLODIPine 5 MG TABLET PO SCH (08:05)
[2021-11-23] MEDS: ARIPiprazole 10 MG TABLET PO SCH (08:05)
[2021-11-23] MEDS: Apixaban 5 MG TABLET PO SCH (08:05)
[2021-11-23] MEDS: Pregabalin 75 MG CAPSULE PO SCH (08:05)
[2021-11-23] MEDS: Thiamine (B-1) 100 MG in 0.9 % Sodium Chloride 50 ML IVPB SCH (08:07)
[2021-11-23] MEDS: levETIRAcetam 750 MG in 0.9 % Sodium Chloride 100 ML IVPB SCH (08:07)
[2021-11-23] MEDS: Phenytoin 100 MG in Equashield Syringe 1 EACH IVP SCH (08:08)
[2021-11-23 08:41] VITALS: PULSE 69
== END 2021-11-23 09:56 | disposition left against medical advice (07) | DRG 100 ==
LOC: 3ANU → SUATTDRO 12:31 → 2NNU 11-20 16:12
PROVIDERS: ADMIT Internal Medicine; ATTEND Internal Medicine

== ENCOUNTER 2022-02-06 04:16 | Inpatient (IN) ==
[2022-02-06 05:42] LABS: Bilirubin,Urine Negative (Negative); Blood,Urine Negative (Negative); Clarity,Urine Clear (Clear); Color,Urine Colorless (Yellow); Glucose,Urine (UA) >=1000 mg/dL (Normal); Ketones,Urine Negative (Negative); Leukocyte Esterase,Urine Small (Negative); Mucus,Urine Few per lpf (None-Few); Nitrite,Urine Negative (Negative); PH,Urine 6.5 pH Units (5.0-8.0); Protein,Urine Negative (Neg-Trace); RBC,Urine 0-3 per hpf (0-3); Specific Gravity,Urine 1.017 (1.010-1.025); Squamous Epithelial Cell,Urine Few per hpf (None-Few); Urobilinogen,Urine Normal (Normal)
[2022-02-06 06:05] LABS: Influenza A PCR Negative (Negative); Influenza B PCR Negative (Negative); Resp. Syncytial Virus PCR Negative (Negative)
[2022-02-06 06:32] LABS: SARS-CoV-2 by PCR (In House) Negative (Negative)
[2022-02-06] MEDS ORDERED: haloperidoL 5 MG TABLET PO PRN (08:53)
[2022-02-06] MEDS ORDERED: *HR* LORazepam 1 MG TABLET PO PRN (08:53)
[2022-02-06] MEDS ORDERED: Acetaminophen 325 MG TABLET PO PRN (08:53)
[2022-02-06] MEDS: *HR* LORazepam 2 MG/ML VIAL IM PRN (09:10)
[2022-02-06] MEDS: Haloperidol Lactate 5 MG/ML VIAL IM PRN (09:10)
[2022-02-06] MEDS ORDERED: FREMANEZUMAB VFRM 225 MG/1.5 ML SUBQ SCH (09:45)
[2022-02-06] MEDS: *HR* OxyCODONE/APAP 10/325 TABLET PO PRN ×2 (10:51→21:15)
[2022-02-06] MEDS ORDERED: Haloperidol Lactate 5 MG/ML VIAL IM ONE (11:57)
[2022-02-06] MEDS ORDERED: *HR* LORazepam 2 MG/ML VIAL IM ONE (11:57)
[2022-02-06] MEDS: levETIRAcetam 250 MG TABLET PO SCH ×2 (14:41→21:05)
[2022-02-06] MEDS: Budesonide/Glycopyr/Formoterol [Breztri Aerosphere Inhaler] PO SCH ×2 (14:41→21:43)
[2022-02-06] MEDS: ARIPiprazole 5 MG TABLET PO SCH (14:41)
[2022-02-06] MEDS ORDERED: SUMAtriptan succinate 50 MG TABLET PO PRN (16:14)
[2022-02-06] MEDS ORDERED: CloNIDine Patch 0.2 MG PATCH (WEEKLY) TD SCH (17:00)
[2022-02-06] MEDS: Apixaban 5 MG TABLET PO SCH (21:04)
[2022-02-06] MEDS: Melatonin 3 MG TABLET PO SCH (21:04)
[2022-02-06] MEDS: Pregabalin 75 MG CAPSULE PO SCH (21:05)
[2022-02-06] MEDS: Nitrofurantoin (BID) 100 MG CAPSULE PO SCH (21:05)
[2022-02-07] MEDS: *HR* OxyCODONE/APAP 10/325 TABLET PO PRN ×2 (06:26→10:54)
[2022-02-07] MEDS: *HR* SitaGLIPtin 100 MG TABLET PO SCH (08:35)
[2022-02-07] MEDS: levETIRAcetam 250 MG TABLET PO SCH ×2 (08:35→20:40)
[2022-02-07] MEDS: Isosorbide MONOnitrate (24 HR) 60 MG TAB.ER.24H PO SCH (08:35)
[2022-02-07] MEDS: Apixaban 5 MG TABLET PO SCH ×2 (08:35→20:40)
[2022-02-07] MEDS: Pregabalin 75 MG CAPSULE PO SCH ×2 (08:35→20:39)
[2022-02-07] MEDS: Nitrofurantoin (BID) 100 MG CAPSULE PO SCH ×2 (08:35→20:40)
[2022-02-07] MEDS: lisinopriL 5 MG TABLET PO SCH (08:35)
[2022-02-07] MEDS: ARIPiprazole 5 MG TABLET PO SCH ×2 (08:36→20:39)
[2022-02-07] MEDS: Budesonide/Glycopyr/Formoterol [Breztri Aerosphere Inhaler] PO SCH ×2 (08:39→20:43)
[2022-02-07] MEDS: Haloperidol Lactate 5 MG/ML VIAL IM PRN ×2 (11:07→18:28)
[2022-02-07] MEDS: *HR* LORazepam 2 MG/ML VIAL IM PRN ×2 (11:09→18:26)
[2022-02-07] MEDS: *HR* LORazepam 1 MG TABLET PO SCH ×2 (15:10→20:40)
[2022-02-07] MEDS: Melatonin 3 MG TABLET PO SCH (20:41)
[2022-02-08] MEDS: ARIPiprazole 5 MG TABLET PO SCH ×2 (08:16→20:56)
[2022-02-08] MEDS: lisinopriL 5 MG TABLET PO SCH (08:16)
[2022-02-08] MEDS: *HR* SitaGLIPtin 100 MG TABLET PO SCH (08:16)
[2022-02-08] MEDS: levETIRAcetam 250 MG TABLET PO SCH ×2 (08:16→20:55)
[2022-02-08] MEDS: Nitrofurantoin (BID) 100 MG CAPSULE PO SCH ×2 (08:17→20:53)
[2022-02-08] MEDS: *HR* LORazepam 1 MG TABLET PO SCH ×3 (08:17→20:55)
[2022-02-08] MEDS: Isosorbide MONOnitrate (24 HR) 60 MG TAB.ER.24H PO SCH (08:17)
[2022-02-08] MEDS: Apixaban 5 MG TABLET PO SCH ×2 (08:17→20:56)
[2022-02-08] MEDS: Pregabalin 75 MG CAPSULE PO SCH ×2 (08:17→20:55)
[2022-02-08] MEDS: Budesonide/Glycopyr/Formoterol [Breztri Aerosphere Inhaler] PO SCH (08:27)
[2022-02-08] MEDS: *HR* OxyCODONE/APAP 10/325 TABLET PO PRN ×2 (09:16→20:55)
[2022-02-08] MEDS: Haloperidol Lactate 5 MG/ML VIAL IM PRN (09:40)
[2022-02-08] MEDS ORDERED: *HR* LORazepam 2 MG/ML VIAL IM STA (11:48)
[2022-02-08] MEDS ORDERED: Ziprasidone 10 MG, Closed System Device IM Kit 1 EACH in Water for inj. (sterile) 0.5 ML IM ONE (11:48)
[2022-02-08] MEDS ORDERED: Ziprasidone 20 MG/VIAL VIAL IM ONE (12:02)
[2022-02-08] MEDS ORDERED: Water for inj. (sterile) 10 ML ONE (12:02)
[2022-02-08] MEDS: traZODone 50 MG TABLET PO PRN (20:54)
[2022-02-08] MEDS: hydrOXYzine pamoate 25 MG CAPSULE PO PRN (20:54)
[2022-02-08] MEDS: Melatonin 3 MG TABLET PO SCH (20:54)
[2022-02-09] MEDS: *HR* OxyCODONE/APAP 10/325 TABLET PO PRN ×3 (08:07→21:45)
[2022-02-09] MEDS: *HR* LORazepam 1 MG TABLET PO SCH (08:08)
[2022-02-09] MEDS: lisinopriL 5 MG TABLET PO SCH (08:12)
[2022-02-09] MEDS: levETIRAcetam 250 MG TABLET PO SCH ×2 (08:12→21:45)
[2022-02-09] MEDS: Pregabalin 75 MG CAPSULE PO SCH ×2 (08:12→21:45)
[2022-02-09] MEDS: ARIPiprazole 5 MG TABLET PO SCH ×2 (08:12→21:44)
[2022-02-09] MEDS: Nitrofurantoin (BID) 100 MG CAPSULE PO SCH ×2 (08:13→21:45)
[2022-02-09] MEDS: *HR* SitaGLIPtin 100 MG TABLET PO SCH (08:13)
[2022-02-09] MEDS: Isosorbide MONOnitrate (24 HR) 60 MG TAB.ER.24H PO SCH (08:13)
[2022-02-09] MEDS: Apixaban 5 MG TABLET PO SCH ×2 (08:17→21:46)
[2022-02-09] MEDS ORDERED: Ziprasidone 10 MG, Closed System Device IM Kit 1 EACH in Water for inj. (sterile) 0.5 ML IM PRN (13:27)
[2022-02-09] MEDS: Melatonin 3 MG TABLET PO SCH (21:45)
[2022-02-09] MEDS: hydrOXYzine pamoate 25 MG CAPSULE PO PRN (21:45)
[2022-02-09] MEDS: traZODone 50 MG TABLET PO PRN (21:45)
[2022-02-09] MEDS: *HR* LORazepam 0.5 MG TABLET PO SCH (21:46)
[2022-02-09] MEDS: Ziprasidone 20 MG CAPSULE PO PRN (23:04)
[2022-02-10] MEDS: Isosorbide MONOnitrate (24 HR) 60 MG TAB.ER.24H PO SCH (08:54)
[2022-02-10] MEDS: *HR* SitaGLIPtin 100 MG TABLET PO SCH (08:54)
[2022-02-10] MEDS: Apixaban 5 MG TABLET PO SCH ×2 (08:54→20:18)
[2022-02-10] MEDS: Nitrofurantoin (BID) 100 MG CAPSULE PO SCH ×2 (08:54→20:17)
[2022-02-10] MEDS: *HR* LORazepam 0.5 MG TABLET PO SCH ×2 (08:54→20:18)
[2022-02-10] MEDS: Pregabalin 75 MG CAPSULE PO SCH ×2 (08:55→20:16)
[2022-02-10] MEDS: levETIRAcetam 250 MG TABLET PO SCH (08:55)
[2022-02-10] MEDS: lisinopriL 5 MG TABLET PO SCH (08:55)
[2022-02-10] MEDS: ARIPiprazole 5 MG TABLET PO SCH ×2 (08:55→20:17)
[2022-02-10] MEDS: Ziprasidone 20 MG CAPSULE PO PRN (10:55)
[2022-02-10] MEDS ORDERED: Ziprasidone 20 MG/VIAL VIAL IM ONE (13:40)
[2022-02-10] MEDS ORDERED: Water for inj. (sterile) 10 ML ONE (13:40)
[2022-02-10] MEDS: Melatonin 3 MG TABLET PO SCH (20:16)
[2022-02-10] MEDS: *HR* OxyCODONE/APAP 10/325 TABLET PO PRN (20:17)
[2022-02-10] MEDS: traZODone 50 MG TABLET PO PRN (20:19)
[2022-02-10 20:30] VITALS: BP 109/64; PULSE 70; TEMP 97.8; O2SAT 95
[2022-02-10] MEDS ORDERED: OXcarbazepine 150 MG TABLET PO SCH (21:00)
[2022-02-10 23:24] LABS: Basophils # 0.1 K/mcL (0.0-0.2); Basophils % 0.7 %; Eosinophils # 0.4 K/mcL (0.0-0.6); Eosinophils % 6.2 %; Hematocrit 33.5 % (35.3-44.9); Hemoglobin 9.9 g/dL (11.5-15.4); Immature Granulocytes % 0.3 % (0-4); Lymphocytes # 0.9 K/mcL (0.6-4.6); Lymphocytes % 12.6 %; Mean Corpuscular HGB Conc 29.6 g/dL (31.6-35.5); Mean Corpuscular Hemoglobin 23.8 pg (28.0-33.3); Mean Corpuscular Volume 80.5 fL (83.0-100.0); Mean Platelet Volume 10.4 fL (9.4-12.4); Monocytes # 0.7 K/mcL (0.0-1.3); Monocytes % 9.6 %; Neutrophils # 4.9 K/mcL (1.6-8.9); Platelet Count 270 K/mcL (140-400); Red Blood Count 4.16 M/mcL (3.82-4.97); Segmented Neutrophils % 70.6 %
[2022-02-10 23:41] LABS: Alanine Aminotransferase 12 Units/L (7-52); Albumin 3.8 g/dL (3.5-5.7); Albumin/Globulin Ratio 1.6 (1.1-2.2); Alkaline Phosphatase 101 Units/L (34-104); Aspartate Amino Transferase 17 Units/L (13-39); BUN/Creatinine Ratio 27 (6-26); Bilirubin,Total 0.3 mg/dL (0.3-1.0); Blood Urea Nitrogen 20 mg/dL (6-20); Calcium 9.4 mg/dL (8.6-10.3); Carbon Dioxide 26 mEq/L (23-29); Chloride 104 mEq/L (98-107); Globulin 2.4 g/dL (2.4-3.5); Glucose 130 mg/dL (70-105); Osmolality,Calculated 290 (280-300); Sodium 138 mEq/L (136-145); Total Protein 6.2 g/dL (6.4-8.9); eGFR For African Americans > 60 (> 60); eGFR For Non-African Americans > 60 (> 60)
== END 2022-02-10 23:15 | disposition other institution (70) | DRG 885 ==
LOC: 1ANU 04:16 → EMEROOARM 04:16 → 1ANU 10:24
PROVIDERS: ADMIT Psychiatry & Neurology Forensic Psychiatry; ATTEND Psychiatry & Neurology Forensic Psychiatry

== ENCOUNTER 2022-02-10 23:22 | Observation (INO) ==
[2022-02-11] MEDS ORDERED: hydrOXYzine pamoate 25 MG CAPSULE PO PRN (01:10)
[2022-02-11] MEDS ORDERED: traZODone 50 MG TABLET PO PRN (01:11)
[2022-02-11] MEDS ORDERED: Melatonin 3 MG TABLET PO SCH (01:15)
[2022-02-11] MEDS ORDERED: Dextrose Gel 15 GM/37.5 ML TUBE PO PRN ×2 (01:35)
[2022-02-11] MEDS ORDERED: D5% in Water 1,000 ML IVC PRN (01:35)
[2022-02-11] MEDS ORDERED: *HR* Dextrose 50 % in Water (Syg) 50 ML SYRINGE IVP PRN (01:35)
[2022-02-11] MEDS ORDERED: Acetaminophen 325 MG TABLET PO PRN (01:36)
[2022-02-11] MEDS ORDERED: Naloxone 0.4 MG/ML INJ IVP PRN (01:36)
[2022-02-11] MEDS: Apixaban 5 MG TABLET PO SCH ×2 (01:40→08:14)
[2022-02-11] MEDS: OXcarbazepine 150 MG TABLET PO SCH ×2 (01:40→08:13)
[2022-02-11] MEDS ORDERED: Insulin LISPRO 300 UNITS/3 ML VIAL SUBQ SCH (01:45)
[2022-02-11 06:36] LABS: Bilirubin,Urine Negative (Negative); Blood,Urine Negative (Negative); Clarity,Urine Clear (Clear); Color,Urine Colorless (Yellow); Glucose,Urine (UA) >=1000 mg/dL (Normal); Ketones,Urine Negative (Negative); Leukocyte Esterase,Urine Negative (Negative); Mucus,Urine Few per lpf (None-Few); Nitrite,Urine Negative (Negative); Protein,Urine Negative (Neg-Trace); RBC,Urine 0-3 per hpf (0-3); Specific Gravity,Urine 1.023 (1.010-1.025); Squamous Epithelial Cell,Urine Few per hpf (None-Few); Urobilinogen,Urine Normal (Normal); WBC,Urine 0-3 per hpf (0-3)
[2022-02-11 07:35] VITALS: O2SAT 96
[2022-02-11] MEDS: Insulin LISPRO 300 UNITS/3 ML VIAL SUBQ SCH ×2 (08:23→12:34)
[2022-02-11] MEDS ORDERED: lisinopriL 5 MG TABLET PO SCH (09:00)
[2022-02-11] MEDS ORDERED: amLODIPine 5 MG TABLET PO SCH (09:00)
[2022-02-11] MEDS ORDERED: Isosorbide MONOnitrate (24 HR) 60 MG TAB.ER.24H PO SCH (09:00)
[2022-02-11] MEDS ORDERED: ARIPiprazole 10 MG TABLET PO SCH (09:00)
[2022-02-11] MEDS ORDERED: cefTRIAXone 1,000 MG in 0.9 % Sodium Chloride Mini Bag 100 ML IVPB SCH (09:00)
[2022-02-11 10:47] LABS: Hematocrit 35.7 % (35.3-44.9); Hemoglobin 10.6 g/dL (11.5-15.4); Mean Corpuscular HGB Conc 29.7 g/dL (31.6-35.5); Mean Corpuscular Hemoglobin 23.9 pg (28.0-33.3); Mean Corpuscular Volume 80.6 fL (83.0-100.0); Mean Platelet Volume 10.7 fL (9.4-12.4); Platelet Count 258 K/mcL (140-400); Red Blood Count 4.43 M/mcL (3.82-4.97); Red Cell Distribution Width 19.2 % (11.5-14.5); White Blood Count 7.2 K/mcL (4.3-11.1)
[2022-02-11 11:09] LABS: Estimated Average Glucose 166 mg/dl; Hemoglobin A1C 7.4 %
[2022-02-11 11:17] LABS: INR 1.3
[2022-02-11 11:18] VITALS: BP 122/82; PULSE 77; TEMP 98
[2022-02-11 11:18] LABS: % Iron Saturation 7 % (15-50); Iron 37 mcg/dL (50-170); Transferrin 354 mg/dL (203-362)
[2022-02-11 11:20] LABS: BUN/Creatinine Ratio 44 (6-26); Blood Urea Nitrogen 24 mg/dL (6-20); Calcium 9.3 mg/dL (8.6-10.3); Carbon Dioxide 18 mEq/L (23-29); Chloride 103 mEq/L (98-107); Chol/HDL Ratio 2.7 (0-4.9); Cholesterol 172 mg/dL (< 200); Glucose 152 mg/dL (70-105); HDL Cholesterol 63 mg/dL (40-59); LDL Cholesterol,Calculated 81 mg/dL (< 100); Magnesium 1.8 mg/dL (1.6-2.6); Osmolality,Calculated 287 (280-300); Potassium 3.9 mEq/L (3.5-5.1); Sodium 135 mEq/L (136-145); Triglycerides 138 mg/dL (< 150); eGFR For African Americans > 60 (> 60); eGFR For Non-African Americans > 60 (> 60)
[2022-02-11 11:50] LABS: Troponin I < 0.03 ng/mL (< 0.04)
[2022-02-11 12:08] LABS: Ferritin 9 ng/mL (10-120)
[2022-02-11 12:14] LABS: Folate 8.5 ng/mL (3.0-16.0)
== END 2022-02-11 13:00 | disposition short-term general hospital (02) ==
LOC: 3NENU → SUATTDRO 23:25
PROVIDERS: ADMIT Psychiatry & Neurology Psychiatry; ATTEND Internal Medicine